=== PATIENT | female | born 1980 | race Caucasian/White ===

== ENCOUNTER 2020-06-04 12:25 | Outpatient (CLI) | payer BC | END 2020-06-04 12:26 | disposition home or self-care (01) | LOC: CSHMRI 12:25 | PROVIDERS: ATTEND Nurse Practitioner Acute Care | DX: H47.10 Unspecified papilledema (principal); R51.9 Headache, unspecified | CPT/HCPCS: 70544; 70553 ==

== ENCOUNTER 2020-06-10 10:45 | Day surgery (SDC) | payer BC ==
[2020-06-10] MEDS ORDERED: Lidocaine 1% PF 5 ML VIAL ONE ×2 (11:04→11:26)
[2020-06-10] MEDS ORDERED: Sodium Bicarbonate 2.5 MEQ/5 ML VIAL ONE ×2 (11:04→11:26)
[2020-06-10 11:49] VITALS: BMI 26.5
[2020-06-10 11:56] VITALS: BP 124/83; TEMP 97
[2020-06-10 14:40] LABS: CSF RBC Count - Manual 3 /cu.mm (None Seen); CSF WBC/NonHematics Count-Man 8 /cu.mm (0-5)
[2020-06-10 14:44] LABS: Clarity Clear (Clear)
[2020-06-10 14:51] LABS: CSF Source CSF; Tube # 2
[2020-06-10 15:43] LABS: Cell Count Non Hematic 20 %; Lymphocytes 80 %
[2020-07-11 13:19] LABS: Fungus Culture Final report (.)
== END 2020-06-10 13:55 | disposition home or self-care (01) ==
LOC: RAD 10:45
PROVIDERS: ATTEND Psychiatry & Neurology Neurology
PROC: 00JU3ZZ Inspection of Spinal Canal, Percutaneous Approach (ICD-10-PCS; principal; 2020-06-10)
DX: H47.10 Unspecified papilledema (principal)
CPT/HCPCS: 62270; 82945; 84157; 86612; 86635; 86698; 87070; 87102; 87205; 89051